=== PATIENT | male | born 1960 | race Caucasian/White ===

== ENCOUNTER → 2020-08-09 15:39 | Outpatient (CLI) | payer OTHER, SELFPAY ==
--- NOTE | 2020-08-09 15:43 | DI.MRI.S_ITS ---
PROCEDURE: MR STROKE Pre- and post-contrast brain MRI, non-contrast brain MR angiogram, pre- and postcontrast neck MR angiogram INDICATIONS: Syncope and collapse TECHNIQUE: Brain: Noncontrast axial T1 spin echo, axial T2 fast spin echo, sagittal and axial FLAIR, coronal T2 fast spin echo, axial gradient echo, axial diffusion and ADC through the brain. After the administration of contrast, axial 3D VIBE of the cranial vasculature and brain. Brain MRA: Non-contrast 3-D time of flight MR angiogram, with multiple jjrxlmr-gsscqifdo-xixhlynaru (MIP) reformats performed. Neck MRA: Axial and sagittal TruFISP through the neck. Coronal dynamic MR angiogram during administration of contrast in the arterial and venous phases, with 3-dimenstional svtinps-jfwyldsxi-dcjalennlj (MIP) reformats constructed from subtraction images. COMPARISON: None. FINDINGS: Image quality: Excellent. BRAIN: CSF spaces: Ventricles are normal in size and shape. Basal cisterns are patent. No extra-axial fluid collections. Brain: No intracranial bleeds or mass effects. Rojas-white matter interface is normal. Diffusion weighted images show no acute ischemic insults. Brainstem appears normal. Normal intravascular flow voids are present. No abnormal intracranial enhancement. Skull and face: Calvarial marrow signal is normal. Orbits appear normal. Sinuses: Sinuses and mastoids are clear. BRAIN MR ANGIOGRAM: Anterior circulation: Intracranial internal carotid arteries are normal in size and enhancement. The flow within the paired anterior cerebral arteries is normal and symmetric. The flow within the middle cerebral arteries is normal and symmetric. The anterior communicating artery is seen. No stenoses, occlusions, or aneurysms. Posterior circulation: The visualized portions of the vertebral arteries demonstrate normal caliber, and join to form a normal appearing basilar artery. The flow within the posterior cerebral arteries is normal and symmetric. No stenoses, occlusions, or aneurysms. NECK MR ANGIOGRAM: Carotids: Great vessels demonstrate a conventional anatomy as they arise from the aortic arch. The origins of the common carotid arteries appear patent. The calibers and courses of both common carotid arteries are normal. The bifurcation regions appear normal bilaterally. The internal carotid arteries demonstrate normal course and caliber. Posterior circulation: The origins of the vertebral arteries appear patent. More superior portions of both vertebral arteries demonstrate normal course and caliber, and join to form a normal appearing basilar artery. Miscellaneous: Subclavian arteries appear patent. Pre-contrast images through the neck show no soft tissue abnormalities. IMPRESSION: BRAIN MRI: Excellent appearance for age, no sign of acute or subacute ischemic injury, or prior stroke. Essentially no microvascular atherosclerotic change is found. BRAIN MR ANGIOGRAM: Normal intracranial MR angiogram. NECK MR ANGIOGRAM: Normal cervical MR angiogram. Please note that this study does not effectively assess for presence or absence of aortic dissection. The brachiocephalic vessels, however, appear patent. Dictated by: Mat Chaves M.D. on 08/09/2020 at 16:41 Approved by: Mat Chaves M.D. on 08/09/2020 at 16:46
== END ==
PROVIDERS: Family Provider Family Medicine; PCP Family Medicine; Referring Provider Family Medicine; Visit Provider Family Medicine
DX: R55 Syncope and collapse (principal)
CPT/HCPCS: 70548; 70553

== ENCOUNTER → 2020-08-16 13:55 | Outpatient (CLI) | payer OTHER, SELFPAY ==
--- NOTE | 2020-09-13 11:05 | P.HOLT.S_ITS ---
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 on 08/28/2020 Less than 1% of identified beats or either ventricular supraventricular ectopic in origin Patient had 2 runs of SVT the fastest being 5 beats at a rate of 162 beats per minute the longest being 8 beats at a rate of 140 beats per minute which suggest possibly more atrial tachycardia than true SVT Impression: Essentially normal 14 day compliance monitor as above. No etiology for syncope identified on this study
== END ==
PROVIDERS: Family Provider Family Medicine; PCP Family Medicine; Referring Provider Family Medicine; Visit Provider Family Medicine
DX: R55 Syncope and collapse (principal)
CPT/HCPCS: 0296T; 0298T

== ENCOUNTER → 2021-01-18 14:31 | Outpatient (CLI) | payer OTHER, SELFPAY ==
[2021-01-18 15:02] LABS: COVID19 -Nasal RAPID Negative (Negative)
== END ==
PROVIDERS: Family Provider Family Medicine; PCP Family Medicine; Visit Provider Physician Assistant
DX: Z20.822 Contact with and (suspected) exposure to COVID-19 (principal)
CPT/HCPCS: 87635

== ENCOUNTER 2021-01-19 13:20 | Day surgery (SDC) | payer OTHER, SELFPAY ==
[2021-01-19] VITALS (7 sets, daily range): BP systolic 108–139; BP diastolic 65–92; PULSE 74–86; RESP 10–18; TEMP 36.2–36.7; O2SAT 95–100; BMI 31.1
--- NOTE | 2021-01-19 | PATH_ITS ---
[facility] Accession Number: [id number] . 01 Material submitted: . PART A: cecum - CECUM POLYP PART B: colon - ASCENDING COLON POLYP . 02 Diagnosis: A. Cecum, Polyp, Biopsy: Sessile serrated adenoma. . B. Ascending Colon, Polyp, Biopsy: Tubular adenoma. V 01/24/2021 1029 Local . 02 Electronically signed: . Orquidea Gardner MD, Pathologist NPI- [id number] . 01 Gross description: . Part A: CECUM POLYP: Received in formalin is 1 fragment(s) of patricia, soft tissue measuring 0.7 x 0.6 x 0.2 cm submitted entirely in 1 cassette(s) Part B: ASCENDING COLON POLYP: Received in formalin are multiple fragment(s) of patricia, soft tissue measuring 0.1 x 0.1 x 0.1 cm to 0.3 x 0.2 x 0.2 cm submitted entirely in 1 cassette(s) /ALBA 01/20/2021 2004 Local . 02 Pathologist provided ICD-10: D12.0, D12.2 . 02 CPT . 302125, 110997 Performed at: 01 [facility] [address], [place], [place] [id number] MD Gil Vogt MD Phone: [phone] Performed at: 02 [facility] [address] [place], [place] [id number] MD Orquidea Gardner MD Phone: [phone]
--- NOTE | 2021-01-19 08:09 | PM.HP.1 ---
History of Present Illness History of Present Illness Date Patient Seen: 01/19/21 Chief complaint: SDC Narrative: 60-year-old male here for screening colonoscopy, last colonoscopy 10 years ago showed no polyps per patient Patient History Surgical History (Updated 01/19/21 @ 13:45 by Ally Gibson RN) H/O vasectomy Meds Home Medications and Allergies Home Medications Medication Instructions Recorded Confirmed Type aspirin 81 mg PO DAILY 01/19/21 01/19/21 History esomeprazole magnesium [Nexium] 40 mg PO DAILY 01/19/21 01/19/21 History etodolac 400 mg PO BID 01/19/21 01/19/21 History metoprolol succinate 50 mg PO DAILY 01/19/21 01/19/21 History Allergies Allergy/AdvReac Type Severity Reaction Status Date / Time hazelnut Allergy Severe Anaphylaxis Verified 01/19/21 13:41 JEANNA Inhibitors Allergy Unknown Verified 01/19/21 07:49 codeine Allergy Unknown Verified 01/19/21 07:49 Exam Narrative Exam Narrative: General: Patient is obese, not in apparent distress Cardiovascular: Regular rate and rhythm, no murmurs, rubs, or gallops; no evidence of edema; no palpable abdominal aortic aneurysm Gastrointestinal: Normoactive bowel sounds, soft, nontender, nondistended, no rebound tenderness, no hepatosplenomegaly, no evidence of hernia Assessment & Plan Assessment & Plan narrative: 60-year-old male here for screening colonoscopy. He is at average risk for colon cancer Regarding the procedure(s), the risks and potential complications, benefits, and alternatives (including not doing the procedure) were discussed with the patient. The risks include but are not limited to bleeding, splenic injury, infection, perforation which may require surgical intervention, missed lesions, and adverse reactions to sedative medicines. After a question and answer period, the patient agreed to proceed with the procedure(s) and gives informed consent.
[2021-01-19] MEDS: SODIUM CHLORIDE 0.9% 1,000 ML 70 ML IV (13:57)
--- NOTE | 2021-01-19 14:38 | PM.OP.ENDO ---
Operative Date/Time/Diagnoses Date of procedure: 01/19/21 Procedure Notes Procedure in detail: Surgeon: Kayden Chance MD Procedure: Colonoscopy with snare polypectomy Preoperative diagnosis: Colon cancer screening Postoperative diagnosis: Colon polyps x2 status post polypectomy; grade 2 internal hemorrhoids Medications: Conscious sedation using 5 mg IV of Midazolam and 200 mcg IV of Fentanyl Preanesthesia Assessment An H and P was performed/updated and the Px?s ASA class is 2 The procedure was discussed in detail with the patient. The potential risks and complications including infection, bleeding, missed lesions, perforation, need for surgery in case of perforation, prolonged hospital stay, and were explained. A brief question and answer period was allotted and once all questions were answered, informed consent was obtained. The patient was brought back to the procedure room and placed on standard monitoring. The patient?s vital signs were monitored continuously throughout the entire procedure. Prior to starting, a timeout was performed to confirm the patient?s identity, allergies, medications, and procedure. Procedure in detail The patient was placed in left lateral decubitus position and once adequate sedation was obtained a BO was performed. The digital rectal examination did not reveal any palpable lesions. The tip of the colonoscope was placed in the anal canal and advanced without difficulty all the way to the cecum which was identified by the appendiceal orifice and the ileocecal valve. Careful examination of all lau of the colon was performed with irrigation of any residual stool. In the cecum, there was note of a 6 mm sessile polyp which was removed by means of cold snare. Resection retrieval was complete with minimal bleeding In the ascending colon, there was note of a 4 mm sessile polyp which was removed by means of cold snare. Resection and retrieval was complete with minimal bleeding Retroflexion was performed in the rectum which revealed grade 2 internal hemorrhoids The patient tolerated the procedure well and will be brought back to the recovery area to be discharged once criteria are met. The prep was judged to be good and adequate to identify polyps less than 5 mm. The withdrawal time was 10 minutes. The total physician intraservice time was 18 minutes. Complications There were no complications and estimated blood loss was minimal. Recommendations: Resume previous diet Continue outPx medications Follow up pathology results Repeat colonoscopy in 5 or 7 or 10 years depending on pathology results An emergency contact number was given to the patient for any complications related to the procedure
[2021-01-19] MEDS: MIDAZOLAM 5 MG/5 ML VIAL IV (14:42)
[2021-01-19] MEDS: fentaNYL 250 MCG/5 ML INJ IV (14:46)
== END 2021-01-19 15:35 | disposition home or self-care (01) ==
PROVIDERS: Family Provider Family Medicine; PCP Family Medicine; Referring Provider Internal Medicine Gastroenterology; Visit Provider Internal Medicine Gastroenterology
PROC: 0DJD8ZZ Inspection of Lower Intestinal Tract, Via Natural or Artificial Opening Endoscopic (ICD-10-PCS; CPT 45378; principal; 2021-01-19 14:30)
DX: Z12.11 Encounter for screening for malignant neoplasm of colon (principal); K64.1 Second degree hemorrhoids; D12.0 Benign neoplasm of cecum; D12.2 Benign neoplasm of ascending colon
CPT/HCPCS: 45385; J2250; J3010

== ENCOUNTER 2021-06-05 19:39 | Emergency (ER) | payer OTHER, SELFPAY ==
[2021-06-05] VITALS (7 sets, daily range): BP systolic 134–190; BP diastolic 83–107; PULSE 70–95; RESP 18–22; TEMP 36.3; O2SAT 97–100; BMI 31.9
--- NOTE | 2021-06-05 19:50 | DI.RAD.S_ITS ---
PROCEDURE: XR CHEST 1V INDICATIONS: chest pain TECHNIQUE: One view of the chest was acquired. COMPARISON: [facility], CHEST 2 VIEW, 09/30/2007, 14:22. [facility], CHEST 2 VIEW, 02/25/2010, 10:18. FINDINGS: Surgical changes and devices: None. Lungs and pleura: Lungs are clear. No pleural effusions or pneumothorax. Mediastinum: Mediastinal contours appear normal. Heart size is normal. Bones and chest wall: No suspicious bony lesions. Overlying soft tissues appear unremarkable. IMPRESSION: 1. No acute cardiopulmonary disease. Dictated by: Gil Manzanares M.D. on 06/05/2021 at 20:27 Approved by: Gil Manzanares M.D. on 06/05/2021 at 20:29
--- NOTE | 2021-06-05 19:59 | ED_ITS ---
HPI - Chest Pain General Chief Complaint: Chest Pain Stated Complaint: CHEST PAIN Time Seen by Provider: 06/05/21 19:59 Source: patient Mode of arrival: Ambulatory Limitations: no limitations History of Present Illness HPI narrative: This is a 60-year-old male who comes emergency department with complaint of chest patient states that he has started developing pain on Sunday at tight sensation kind of to the left sub sternum that radiates through to his back the left shoulder. Patient states he took some ibuprofen which was not helpful. It has been slowly worsening, constant with no resolutionand increasing intensity with time and now radiates to the left jaw. Patient states he has had no shortness of breath no syncope or lightheadedness. He had some mild is nausea after dinner but no other episodes. No vomiting. He felt a little clammy this evening. He states that symptoms seem to be worse when he rotates his head to the left and right. Patient does not recall any injuries or traumas. He takes Nexium, metoprolol daily for hypertension, etodolac for joint inflammation and a daily baby aspirin. He denies any surgeries. He is allergic to codeine and he states possibly Jerrod inhibitors but that he had an episode that was later believed to be secondary to Tova nuts and not his JERROD-inhibitor. No tobacco. Alcohol 2-3 times weekly. No illicit drugs. His maternal grandmother had heart valve replaced. He denies any cardiac, pulmonary embolic history for parents or siblings. No major episodes of travel. Patient states he did have a Holter for 1 week 4-5 months ago after syncopal episode he was having severe back pain. His primary care physician is Dr. Haile. Related Data Home Medications Medication Instructions Recorded Confirmed aspirin 81 mg tablet 81 mg PO DAILY 01/19/21 01/19/21 esomeprazole magnesium 40 mg 40 mg PO DAILY 01/19/21 01/19/21 capsule,delayed release (Nexium) etodolac 400 mg tablet 400 mg PO BID 01/19/21 01/19/21 metoprolol succinate 50 mg 50 mg PO DAILY 01/19/21 01/19/21 tablet,extended release 24 hr Allergies Allergy/AdvReac Type Severity Reaction Status Date / Time hazelnut Allergy Severe Anaphylaxis Verified 01/19/21 13:41 JERROD Inhibitors Allergy Unknown Verified 01/19/21 07:49 codeine Allergy Unknown Verified 01/19/21 07:49 Review of Systems Review of Systems ROS Unobtainable: All systems reviewed & are unremarkable except as noted in HPI and below Patient History Surgical History H/O vasectomy Social History household members: spouse Smoking Status: Never smoker alcohol intake: current Smoking Status: Never smoker alcohol intake frequency: a few times a month Substance Use Type: does not use Exam Narrative Exam Narrative: GENERAL: Alert and oriented x three, male in mild distress. HEENT: Head normocephalic, atraumatic, EOMI, pupils reactive, face symmetric, mo ist mucous membranes NECK: Supple, full range of motion CARDIOVASCULAR: Regular rate and rhythm without murmurs, rubs or gallops. However reproducible anterior chest pain. Patient does have some reproducible discomfort although mild at the left medial border of his scapula and the soft tissue. RESPIRATORY: Breath sounds equal bilaterally, no wheezes rales or rhonchi. ABDOMEN: Soft, nontender. Normoactive bowel sounds all 4 quadrants. No guarding or rebound, rigidity, no mass : No CVA tenderness BACK: No cervical, thoracic or lumbar vertebral point tenderness. Patient has normal range of motion. Patient's gait is normal. Muscle strength is equal and normal in upper and lower extremities. EXTREMITIES: Normal range of motion, no clubbing or edema. Neurovascularly intact. NEUROLOGICAL: Cranial nerves II through XII grossly intact. Moving all extremities SKIN: Warm, dry, no petechiae, no rashes or lesions. Initial Vital Signs Initial Vital Signs: Vital Signs Temperature 97.3 F L 06/05/21 19:41 Pulse Rate 82 06/05/21 19:41 Respiratory Rate 20 06/05/21 19:41 Blood Pressure 190/107 H 06/05/21 19:41 Pulse Oximetry 100 06/05/21 19:41 Scores HEART Score Heart Score history: Slightly Suspicious Heart Score EKG: Non-Specific repolarization disturbance Heart Score Age: 45-64 years old Heart Score risk factors: 1-2 risk factors Heart Score troponin: < or = to normal limit Heart Score Total: 3 Course Orders Ordered: ED Orders 06/05/21 19:50 XR chest 1V Stat EKG-12 Lead Stat 06/05/21 19:52 Complete Blood Count AUTO DIFF Stat Comprehensive Metabolic Panel Stat Lipase Stat Troponin & CK Cardiac Panel Stat 06/05/21 19:59 NT-proBNP (BNP-Adult 18+) Stat Discontinued Medications Aspirin (Aspirin 81 Mg Chew Tab) 243 mg PO NOW ONE Stop: 06/05/21 19:51 Last Admin: 06/05/21 20:02 Dose: 243 mg Documented by: BETTY Nitroglycerin (Nitroglycerin 0.4 Mg Sl Tab) 0.4 mg SL [id number] PRN PRN Reason: Chest Pain Vital Signs Vital signs: Vital Signs - 8 hr 06/05/21 19:41 06/05/21 19:50 06/05/21 20:00 Temperature 97.3 F L Pulse Rate 82 95 H 86 Respiratory Rate 20 22 21 Blood Pressure 190/107 H 185/94 H Pulse Oximetry 100 99 99 06/05/21 20:15 06/05/21 20:30 06/05/21 20:45 Temperature Pulse Rate 79 70 70 Respiratory Rate 19 20 18 Blood Pressure 173/91 H 150/89 H 137/83 Pulse Oximetry 99 98 98 06/05/21 21:00 Temperature Pulse Rate 70 Respiratory Rate 20 Blood Pressure 134/83 Pulse Oximetry 97 MDM - Chest Pain Lab Data Result diagrams: 06/05/21 19:52 06/05/21 19:52 Labs: Lab Results 06/05/21 06/05/21 06/05/21 Range/Units 19:52 19:52 19:59 WBC 8.0 (4.5-11.0) X10^3/uL RBC 4.93 (4.5-5.9) X10^6/uL Hgb 15.2 (13.5-17.5) g/dL Hct 44.5 (41-53) % MCV 90.3 (80-100) fL MCH 30.9 (26-34) PG MCHC 34.2 (30-36) % RDW 13.7 (11.6-14.8) % Plt Count 237 (150-400) X10^3/uL Neut % (Auto) 56.3 (50-75) % Lymph % (Auto) 33.3 (25-40) % Warrick % (Auto) 7.2 (3-14) % Eos % (Auto) 1.6 L (2-4) % Baso % (Auto) 1.6 (0-2) % Neut # (Auto) 4500 (4694-0573) /uL Lymph # (Auto) 2700 (2618-0435) /uL Warrick # (Auto) 600 (0-900) /uL Eos # (Auto) 100 (0-450) /uL Baso # (Auto) 100 (0-100) /uL Sodium 139 (137-145) mmol/L Potassium 3.8 (3.4-5.1) mmol/L Chloride 105 (98-107) mmol/L Carbon Dioxide 28 (22-32) mmol/L BUN 16 (9-20) mg/dL Creatinine 1.01 (0.66-1.25) mg/dL Estimated GFR > 60.0 (>60) mL/min BUN/Creatinine Ratio 15.8 (6-22) Glucose 111 H (80-110) mg/dL Calcium 9.3 (8.4-10.2) mg/dL Total Bilirubin 0.8 (0.2-1.3) mg/dL AST 40 (17-59) IU/L ALT 28 (<50) IU/L Alkaline Phosphatase 66 (38-126) U/L Total Creatine Kinase 52 L (55-170) U/L CK-MB (CK-2) TNP CK-MB (CK-2) Rel Index TNP Troponin I < 0.012 (0.01-0.034) ng/mL NT-Pro-B Natriuret Pep 144 H (<125) pg/mL Total Protein 7.5 (6.3-8.2) g/dL Albumin 4.4 (3.5-5.0) g/dL Globulin 3.1 (1.7-4.1) g/dL Albumin/Globulin Ratio 1.4 (1.0-2.8) Lipase 152 (23-300) U/L Imaging Data Chest x-ray: Radiologist's Impression: Close Chest X-Ray (Signed) Gil Manzanares - 06/05/21 Launch?[address] [address] XRay Report Signed Patient: Kristian Ni MR#: [id number] : 1960 Acct:[id number] Age/Sex: 60 / M Date of Service: 06/05/21 Loc: ED Accession Number: [id number] ?? Procedure: XR chest 1V Ordering Provider: Angelina Velasquez D.O. PROCEDURE:? XR CHEST 1V ? INDICATIONS:? chest pain ? TECHNIQUE:? One view of the chest was acquired.? ? COMPARISON:? [facility], , CHEST 2 VIEW, 09/30/2007, 14:22.? [facility], CHEST 2 VIEW, 02/25/2010, 10:18. ? FINDINGS:? ? Surgical changes and devices:? None.? ? Lungs and pleura:? Lungs are clear.? No pleural effusions or pneumothorax.? ? Mediastinum:? Mediastinal contours appear normal.? Heart size is normal.? ? Bones and chest wall:? No suspicious bony lesions.? Overlying soft tissues appear unremarkable.? ? IMPRESSION:? ? 1.? No acute cardiopulmonary disease. ? ? ? Dictated by: Gil Manzanares M.D. on 06/05/2021 at 20:27 ? ? Approved by: Gil Manzanares M.D. on 06/05/2021 at 20:29?? ECG Data Attestation: I personally reviewed and interpreted this ECG as follows: Prior ECG tracings: not available for review Interpretation: Sinus rhythm with sinus arrhythmia. Rate of 91 TN 184 QRS of 104 and QTC of 432. No acute ST changes appreciated. MDM Narrative Medical decision making narrative: This is a 60-year-old male with complaint of left substernal chest pain radiating to the left back. Patient has had 2 days of discomfort which is worse when he rotates his head right and left. Patient's EKG shows an incomplete right bundle branch. There known for comparison from the past. His troponin is negative with constant unrelenting pain. Patient's chest x-ray shows no acute changes in his labs are otherwise reassuring. Patient did receive aspirin 243mg in the department. His blood pressure improved while he was here after discussed in my suspicion for cardiac cause of his symptoms is low. He has normal cardiac family history. He has not had any long distance travel or high risk factors for pulmonary emboli. Did discuss return precautions. He may add Tylenol to his current medications. Patient is going to follow up with his primary care physician for recheck. Discharge Plan Departure Patient Disposition: Home Clinical Impression: Atypical chest pain Instructions: FARZAD for Atypical Chest Pain Activity Restrictions/Additional Instructions: Follow-up with your physician for recheck, call for an appointment if you are not having any improvement in your symptoms and to have your blood pressure rechecked. Call for an appointment in the morning. You may continue home medications as prescribed. You may take Tylenol up to a 1000 mg every 8 hours as needed with your other medications for pain. Return for fevers, new or worsening chest pain, shortness of breath, lightheadedness or passing out, numbness, tingling, weakness or color changes of your extremities or other new or concerning symptoms. Prescriptions: No Action metoprolol succinate 50 mg Tablet Extended Release 24 Hr 50 mg PO DAILY RF: 0 esomeprazole magnesium [Nexium] 40 mg Capsule,Delayed Release(Dr/Ec) 40 mg PO DAILY RF: 0 etodolac 400 mg Tablet 400 mg PO BID RF: 0 aspirin 81 mg Tablet 81 mg PO DAILY RF: 0 Referrals: Juliano Haile MD [Primary Care Provider] -
[2021-06-05] MEDS: ASPIRIN 81 MG CHEW TAB 243 MG PO (20:02)
[2021-06-05 20:04] LABS: Add Manual Diff / Slide Review NO; Basophils Absolute Auto 100 /uL (0-100); Basophils Percent Auto 1.6 % (0-2); Eosinophils Absolute Auto 100 /uL (0-450); Eosinophils Percent Auto 1.6 % (2-4); Hematocrit 44.5 % (41-53); Hemoglobin 15.2 g/dL (13.5-17.5); Lymphocytes Absolute Auto 2700 /uL (1100-4500); Lymphocytes Percent Auto 33.3 % (25-40); Mean Corpuscular HGB Conc 34.2 % (30-36); Mean Corpuscular Hemoglobin 30.9 PG (26-34); Mean Corpuscular Volume 90.3 fL (80-100); Monocytes Absolute Auto 600 /uL (0-900); Monocytes Percent Auto 7.2 % (3-14); Neutrophils Absolute Auto 4500 /uL (1500-7000); Neutrophils Percent Auto 56.3 % (50-75); Platelet Count 237 X10^3/uL (150-400); Red Blood Cell Count 4.93 X10^6/uL (4.5-5.9); Red Cell Distribution Width 13.7 % (11.6-14.8)
[2021-06-05 20:14] LABS: Alanine Aminotransferase 28 IU/L (<50); Albumin 4.4 g/dL (3.5-5.0); Albumin Globulin Ratio 1.4 (1.0-2.8); Alkaline Phosphatase 66 U/L (38-126); Aspartate Aminotransferase 40 IU/L (17-59); BUN Creatinine Ratio 15.8 (6-22); Bilirubin Total 0.8 mg/dL (0.2-1.3); Blood Urea Nitrogen 16 mg/dL (9-20); Calcium 9.3 mg/dL (8.4-10.2); Carbon Dioxide 28 mmol/L (22-32); Chloride 105 mmol/L (98-107); Creatine Kinase 52 U/L (55-170); Estimated Glomerular Filt Rate > 60.0 mL/min (>60); Globulin 3.1 g/dL (1.7-4.1); Glucose 111 mg/dL (80-110); HEMOLYSIS 47 (0-50); Lipase 152 U/L (23-300); Potassium 3.8 mmol/L (3.4-5.1); Sodium 139 mmol/L (137-145); Total Protein 7.5 g/dL (6.3-8.2)
[2021-06-05 20:23] LABS: NT-proBNP (BNP-Adult 18+) 144 pg/mL (<125)
[2021-06-05 20:26] LABS: Troponin I < 0.012 ng/mL (0.01-0.034)
== END 2021-06-05 21:19 | disposition home or self-care (01) ==
PROVIDERS: Emergency Provider Emergency Medicine; Family Provider Family Medicine; PCP Family Medicine
DX: R07.89 Other chest pain (principal)
CPT/HCPCS: 36415; 71045; 80053; 82550; 83690; 83880; 84484; 85025; 93005; 99284

== ENCOUNTER 2022-12-02 18:17 | Emergency (ER) | payer OTHER, SELFPAY ==
[2022-12-02] VITALS (13 sets, daily range): BP systolic 140–204; BP diastolic 72–113; PULSE 84–100; RESP 16; TEMP 36.6; O2SAT 93–100; BMI 31.7
--- NOTE | 2022-12-02 18:45 | ED.GENADULT ---
HPI - General Adult General Chief complaint: Urogenital-Male Stated complaint: Thinks kidney stone Time Seen by Provider: 12/02/22 18:28 Mode of arrival: Family Vehicle History of Present Illness HPI narrative: 61-year-old gentleman with a history of reflux hypertension who presents today complaining of acute onset left-sided flank pain radiating down to his groin. Was not having any symptoms prior to the acute onset. No recent fever, cough, chills. He is currently nauseated but not vomiting. Been having normal bowel movements. He has never had kidney stones previously Related Data Home Medications Medication Instructions Recorded Confirmed aspirin 81 mg tablet 81 mg PO DAILY 01/19/21 01/19/21 esomeprazole magnesium 40 mg 40 mg PO DAILY 01/19/21 01/19/21 capsule,delayed release (Nexium) etodolac 400 mg tablet 400 mg PO BID 01/19/21 01/19/21 metoprolol succinate 50 mg 50 mg PO DAILY 01/19/21 01/19/21 tablet,extended release 24 hr Allergies Allergy/AdvReac Type Severity Reaction Status Date / Time hazelnut Allergy Severe Anaphylaxis Verified 12/02/22 18:30 JEANNA Inhibitors Allergy Unknown Verified 12/02/22 18:30 codeine Allergy Unknown Verified 12/02/22 18:30 Patient History Medical History (Updated 12/02/22 @ 21:08 by Rayna Kelley MD) Acid reflux Hypertension Kidney stone Surgical History H/O vasectomy Social History household members: spouse Smoking Status: Never smoker alcohol intake: current Smoking Status: Never smoker alcohol intake frequency: a few times a month Substance Use Type: does not use Exam Initial Vital Signs Initial Vital Signs: Vital Signs Temperature 98 F 12/02/22 18:27 Pulse Rate 91 H 12/02/22 18:27 Respiratory Rate 16 12/02/22 18:27 Blood Pressure 204/113 H 12/02/22 18:27 Pulse Oximetry 100 12/02/22 18:27 Oxygen Delivery Method Room Air 12/02/22 18:27 General: pale and acutely diaphoretic but otherwise Healthy appearing, in significant pain. Able to give a complete and coherent history. Well-nourished well-developed HEENT: Moist mucous membranes, normal sclera with reactive pupils, Respiratory: Lungs are clear to auscultation, no wheezing no rales no rhonchi. Full and symmetrical air movement Cardiac: Regular rate and rhythm no murmurs no bruits Abdomen: Soft, tender to palpation left lower quadrant and left flank. Decreased bowel tones. pain radiating to left testicle but no actual testicular pain on palpation Skin: Warm and dry, no rashes Neurologic: Grossly neurologically intact with no obvious asymmetries or abnormalities Extremities: No trauma, well perfused Psych: Cooperative, appropriate insight and affect Course Orders Ordered: ED Orders 12/02/22 18:51 Complete Blood Count AUTO DIFF Stat Comprehensive Metabolic Panel Stat 12/02/22 18:55 CT kidney ureter bladder (KUB) Stat 12/02/22 20:22 Ictotest Urine Stat Hydromorphone HCl (Hydromorphone 0.5 Mg Inj) 0.5 mg IV Q15MIN PRN PRN Reason: Pain, Last Admin: 12/02/22 19:49 Dose: 0.5 mg Documented By: Admin: 12/02/22 19:07 Dose: 0.5 mg Documented By: JESUS MANUEL Discontinued Medications Sodium Chloride (Normal Saline 0.9%) 1,000 mls @ 1,000 mls/hr IV BOLUS ONE Stop: 12/02/22 19:54 Last Infusion: 12/02/22 20:00 Dose: 0 mls/hr Documented By: Admin: 12/02/22 19:01 Dose: 1,000 mls/hr Documented By: JESUS MANUEL Ketorolac Tromethamine (Ketorolac 30 Mg/Ml Vial) 15 mg IV NOW ONE Stop: 12/02/22 18:56 Last Admin: 12/02/22 19:03 Dose: 15 mg Documented By: JESUS MANUEL Ondansetron HCl (Ondansetron 4 Mg/2 Ml Inj) 4 mg IV NOW ONE Stop: 12/02/22 18:56 Last Admin: 12/02/22 19:04 Dose: 4 mg Documented By: JESUS MANUEL Vital Signs Vital signs: Vital Signs - 8 hr 12/02/22 18:27 12/02/22 18:45 12/02/22 18:45 Temperature 98 F Pulse Rate 91 H 100 H Respiratory Rate 16 Blood Pressure 204/113 H 204/109 H Pulse Oximetry 100 100 Oxygen Delivery Method Room Air 12/02/22 19:00 12/02/22 19:00 12/02/22 19:12 Temperature Pulse Rate 98 H 95 H Respiratory Rate Blood Pressure 201/112 H Pulse Oximetry 100 100 Oxygen Delivery Method 12/02/22 19:12 12/02/22 19:15 12/02/22 19:25 Temperature Pulse Rate 90 Respiratory Rate Blood Pressure 185/101 H 168/89 H Pulse Oximetry 99 Oxygen Delivery Method 12/02/22 19:25 12/02/22 19:30 12/02/22 19:30 Temperature Pulse Rate 91 H 90 Respiratory Rate 16 Blood Pressure 176/93 H Pulse Oximetry 96 95 Oxygen Delivery Method Room Air 12/02/22 19:45 12/02/22 20:00 12/02/22 20:00 Temperature Pulse Rate 93 H 91 H Respiratory Rate Blood Pressure 165/86 H Pulse Oximetry 96 93 Oxygen Delivery Method 12/02/22 20:15 12/02/22 20:30 12/02/22 20:30 Temperature Pulse Rate 92 H 84 Respiratory Rate Blood Pressure 140/72 Pulse Oximetry 93 93 Oxygen Delivery Method 12/02/22 20:45 Temperature Pulse Rate 86 Respiratory Rate Blood Pressure Pulse Oximetry 99 Oxygen Delivery Method Medical Decision Making Lab Data 12/02/22 18:51 12/02/22 18:51 Labs: Lab Results 12/02/22 12/02/22 12/02/22 Range/Units 18:51 18:51 20:22 WBC 8.0 (4.5-11.0) X10^3/uL RBC 4.84 (4.5-5.9) X10^6/uL Hgb 14.7 (13.5-17.5) g/dL Hct 42.7 (41-53) % MCV 88.2 (80-100) fL MCH 30.5 (26-34) PG MCHC 34.5 (30-36) % RDW 13.8 (11.6-14.8) % Plt Count 224 (150-400) X10^3/uL Neut % (Auto) 63.9 (50-75) % Lymph % (Auto) 24.3 L (25-40) % [place] % (Auto) 9.2 (3-14) % Eos % (Auto) 1.9 L (2-4) % Baso % (Auto) 0.7 (0-2) % Neut # (Auto) 5100 (6072-7264) /uL Lymph # (Auto) 2000 (4765-2390) /uL [place] # (Auto) 700 (0-900) /uL Eos # (Auto) 100 (0-450) /uL Baso # (Auto) 100 (0-100) /uL Sodium 138 (137-145) mmol/L Potassium 3.6 (3.4-5.1) mmol/L Chloride 103 (98-107) mmol/L Carbon Dioxide 25 (22-32) mmol/L BUN 17 (9-20) mg/dL Creatinine 1.44 H (0.66-1.25) mg/dL Estimated GFR 55 L (>60) mL/min BUN/Creatinine Ratio 11.8 (6-22) Glucose 102 (80-110) mg/dL Calcium 9.1 (8.4-10.2) mg/dL Total Bilirubin 1.2 (0.2-1.3) mg/dL AST 38 (17-59) IU/L ALT 33 (<50) IU/L Alkaline Phosphatase 64 (38-126) U/L Total Protein 7.3 (6.3-8.2) g/dL Albumin 4.2 (3.5-5.0) g/dL Globulin 3.1 (1.7-4.1) g/dL Albumin/Globulin Ratio 1.4 (1.0-2.8) Ur Bilirubin Confirm Positive H (Negative) Urine Dip Bedside Urine Glucose Negative Bedside Urine Bilirubin ++ 2 Bedside Urine Ketone +/- 5 Urine Specific [place] 1.015 Bedside Urine Occult Blood - Negative Bedside Urine pH 7.0 Bedside Urine Protein - Negative Bedside Urine Urobilinogen - Negative Bedside Urine Nitrite - Negative Bedside Urine Leukocytes - Negative Esterase Point of care testing: Urine Dip Bedside Urine Glucose Negative Bedside Urine Bilirubin ++ 2 Bedside Urine Ketone +/- 5 Urine Specific [place] 1.015 Bedside Urine Occult Blood - Negative Bedside Urine pH 7.0 Bedside Urine Protein - Negative Bedside Urine Urobilinogen - Negative Bedside Urine Nitrite - Negative Bedside Urine Leukocytes - Negative Esterase Imaging Data CT scan - abdomen/pelvis: Radiologist's Impression: IMPRESSION:? 1. Small 3 mm calculus in the left posterior bladder just distal to the ureterovesicular junction.? Mild left hydroureter and periureteral fat stranding.? Overall, findings are suspicious for a recently passed ureteral calculus. 2. Suspected additional punctate nonobstructing bilateral renal calculi. 3. Colonic diverticulosis without signs of acute diverticulitis. 4. Small hiatal hernia.? ? ? Approved by: Robin Hillman M.D. on 12/02/2022 at 19:47? MDM Narrative Medical decision making narrative: CC:Flank pain acute, new problem undiagnosed potential for systemic system symptoms Complicating comorbidities: None Data collected from: patient, Medical records reviewed: notes from prior cardiac workup and emergency department Differential considered: kidney stone, pyelonephritis, AAA, diverticulitis, bowel obstruction, bowel perforation Exam documented above, pertinent findings include: significant left lower quadrant and flank pain that is worse with palpation Lab Test results independently reviewed as above. Pertinent findings: Independently reviewed EKG as above Imaging studies independently reviewed:Kidneys, ureters and bladder:? A 3 mm calculus is seen in the left posterior bladder just distal to the ureterovesicular junction.? There is mild left hydroureter and periureteral fat stranding.? Mild left perinephric fat stranding.? No ureteral calculus is seen.? Suspected subtle punctate 1 mm nonobstructing calculi in both kidneys. Treatments: IV fluids, Toradol, Zofran and hydromorphone. Pain was well controlled. Re-evaluations: On re-evaluation, pain is significantly improved. Review findings with patient Discussion: patient had a 3 mm kidney stone causing his acute pain and has passed and is visible in the bladder along with sequelae of previous passage. No evidence of infection or alternate explanation. No need for additional workup or hospitalization at this time. Disposition: see below, along with detailed discharge instructions that have been reviewed with patient as well as indications for ED re-evaluation and additional outpatient follow up Discharge Plan Departure Patient Disposition: Home Clinical Impression: Kidney stone on left side Instructions: DI for Kidney Stones Activity Restrictions/Additional Instructions: Thank you for coming in today you did in fact have a kidney stone. It was 3 mm and has passed into your bladder. At this time there is no sign of infection, diverticulitis or other complication . You may find that you are sore in the left flank over the next day or 2. Using 400 mg of ibuprofen (2 [id number]-djt-ltosrwd pills) and 1 Tylenol every 6 hours can be very helpful in controlling pain. If you find that you have recurrent issues or problems please feel free to return to the ER Prescriptions: No Action metoprolol succinate 50 mg Tablet Extended Release 24 Hr 50 mg PO DAILY esomeprazole magnesium [Nexium] 40 mg Capsule,Delayed Release(Dr/Ec) 40 mg PO DAILY etodolac 400 mg Tablet 400 mg PO BID aspirin 81 mg Tablet 81 mg PO DAILY Referrals: Juliano Haile MD [Primary Care Provider] - Stand Alone Forms: Patient Portal/API
--- NOTE | 2022-12-02 18:55 | DI.CT.S_ITS ---
PROCEDURE: CT KIDNEY URETER BLADDER (KUB) INDICATIONS: suspected kidney stone TECHNIQUE: Axial sections were acquired from the lung bases to the pubic symphysis. Coronal and sagittal reformats were performed. For radiation dose reduction, the following was used: automated exposure control, adjustment of mA and/or kV according to patient size. COMPARISON: None. FINDINGS: Image quality: Excellent. Lung bases: Mild dependent atelectasis in the lung bases. Heart: No significant findings. URINARY: Kidneys, ureters and bladder: A 3 mm calculus is seen in the left posterior bladder just distal to the ureterovesicular junction. There is mild left hydroureter and periureteral fat stranding. Mild left perinephric fat stranding. No ureteral calculus is seen. Suspected subtle punctate 1 mm nonobstructing calculi in both kidneys. ABDOMEN: Liver: Unremarkable. Gallbladder: Unremarkable. Biliary ducts: Unremarkable. Pancreas: Unremarkable. Spleen: Unremarkable. Adrenal Glands: Unremarkable. Stomach and Bowel: Small hiatal hernia. A few scattered diverticula are seen in the colon without signs of acute diverticulitis. Normal appendix. Small bowel loops are unremarkable. Peritoneum: No abnormal intraperitoneal fluid. No free air. Ventral Wall: No hernia. Abdominal Nodes: No enlarged retroperitoneal or mesenteric lymph nodes. Vessels: Aorta and inferior vena cava are normal in size. PELVIS: Pelvic Organs: Coarse calcifications are seen in the prostate. Pelvic Nodes: Unremarkable. Miscellaneous: No inguinal hernias are seen. Bones: Degenerative changes are seen in the spine and sacroiliac joints. IMPRESSION: 1. Small 3 mm calculus in the left posterior bladder just distal to the ureterovesicular junction. Mild left hydroureter and periureteral fat stranding. Overall, findings are suspicious for a recently passed ureteral calculus. 2. Suspected additional punctate nonobstructing bilateral renal calculi. 3. Colonic diverticulosis without signs of acute diverticulitis. 4. Small hiatal hernia. Approved by: Robin Hillman M.D. on 12/02/2022 at 19:47
[2022-12-02] MEDS: SODIUM CHLORIDE 0.9% 1,000 ML 1000 ML IV (19:01)
[2022-12-02] MEDS: KETOROLAC 30 MG/ML VIAL 15 MG IV (19:03)
[2022-12-02 19:04] LABS: Add Manual Diff / Slide Review NO; Basophils Absolute Auto 100 /uL (0-100); Basophils Percent Auto 0.7 % (0-2); Eosinophils Absolute Auto 100 /uL (0-450); Eosinophils Percent Auto 1.9 % (2-4); Hematocrit 42.7 % (41-53); Hemoglobin 14.7 g/dL (13.5-17.5); Lymphocytes Absolute Auto 2000 /uL (1100-4500); Lymphocytes Percent Auto 24.3 % (25-40); Mean Corpuscular HGB Conc 34.5 % (30-36); Mean Corpuscular Hemoglobin 30.5 PG (26-34); Mean Corpuscular Volume 88.2 fL (80-100); Monocytes Absolute Auto 700 /uL (0-900); Monocytes Percent Auto 9.2 % (3-14); Neutrophils Absolute Auto 5100 /uL (1500-7000); Neutrophils Percent Auto 63.9 % (50-75); Platelet Count 224 X10^3/uL (150-400); Red Blood Cell Count 4.84 X10^6/uL (4.5-5.9); Red Cell Distribution Width 13.8 % (11.6-14.8)
[2022-12-02] MEDS: ONDANSETRON 4 MG/2 ML INJ IV (19:04)
[2022-12-02] MEDS: HYDROMORPHONE 0.5 MG INJ IV ×3 (19:07→21:20)
[2022-12-02 19:14] LABS: Alanine Aminotransferase 33 IU/L (<50); Albumin 4.2 g/dL (3.5-5.0); Albumin Globulin Ratio 1.4 (1.0-2.8); Alkaline Phosphatase 64 U/L (38-126); Aspartate Aminotransferase 38 IU/L (17-59); BUN Creatinine Ratio 11.8 (6-22); Bilirubin Total 1.2 mg/dL (0.2-1.3); Blood Urea Nitrogen 17 mg/dL (9-20); Calcium 9.1 mg/dL (8.4-10.2); Carbon Dioxide 25 mmol/L (22-32); Chloride 103 mmol/L (98-107); Estimated Glomerular Filt Rate 55 mL/min (>60); Globulin 3.1 g/dL (1.7-4.1); Glucose 102 mg/dL (80-110); HEMOLYSIS 20 (0-50); Potassium 3.6 mmol/L (3.4-5.1); Sodium 138 mmol/L (137-145); Total Protein 7.3 g/dL (6.3-8.2)
[2022-12-02 20:49] LABS: Ictotest Urine Positive (Negative)
== END 2022-12-02 21:34 | disposition home or self-care (01) ==
PROVIDERS: Emergency Provider Emergency Medicine; Family Provider Family Medicine; PCP Family Medicine
DX: N20.0 Calculus of kidney (principal)
CPT/HCPCS: 36415; 74176; 80053; 81003; 85025; 96361; 96374; 96375; 99284; J1170; J1885; J2405